=== PATIENT | female | born 1960 | race African-American/Black ===

== ENCOUNTER 2020-06-06 16:15 | Outpatient (CLI) | payer MEDICARE | END 2020-06-06 16:16 | disposition home or self-care (01) | LOC: CSHWCC 16:15 | PROVIDERS: ATTEND Nurse Practitioner Family | DX: I89.0 Lymphedema, not elsewhere classified (principal); I10 Essential (primary) hypertension; R60.0 Localized edema; E03.9 Hypothyroidism, unspecified; E66.01 Morbid (severe) obesity due to excess calories; F32.9 Major depressive disorder, single episode, unspecified ==

== ENCOUNTER 2022-03-06 09:21 | Outpatient (CLI) | payer OTHER | END 2022-03-06 09:22 | disposition home or self-care (01) | LOC: CSHWCC 09:21 | PROVIDERS: ATTEND Preventive Medicine Undersea and Hyperbaric Medicine | DX: R60.0 Localized edema (principal) | CPT/HCPCS: 97139; G0463; 99213 ==